=== PATIENT | male | born 1980 | race Two or more races ===

== ENCOUNTER 2022-03-03 11:31 | Emergency (ER) | payer SELFPAY ==
[~2022-03-03] VITALS: Ht 167.6 cm; Wt 90.7 kg
[2022-03-03 11:50] VITALS: BP 121/85
[2022-03-03] MEDS ORDERED: LIDOCAINE 1% HCL (LOCAL ANESTH.) INJ 20ML MDV ID ONE (12:15)
[2022-03-03] MEDS ORDERED: cefTRIAXone SOD 1,000 MG VL IM ONE (12:15)
[2022-03-03] MEDS ORDERED: TETANUS-DIPTH-ACEL PERTUSSIS 0.5ML SYR Tdap IM ONE (12:15)
[2022-03-03] MEDS ORDERED: LIDOCAINE 1%HCL (LOCAL ANESTH) 10 ML MDV ONE (12:22)
[2022-03-03] MEDS ORDERED: CEPH500C PO (12:39)
[2022-03-03] MEDS ORDERED: IBUP800T27 PO (12:39)
== END 2022-03-03 13:11 | disposition home or self-care (01) ==
LOC: ER 11:31
DX: S62.611A Displaced fracture of proximal phalanx of left index finger, initial encounter for closed fracture (principal); S61.211A Laceration without foreign body of left index finger without damage to nail, initial encounter; Z79.1 Long term (current) use of non-steroidal anti-inflammatories (NSAID); Z79.899 Other long term (current) drug therapy; W26.8XXA Contact with other sharp object(s), not elsewhere classified, initial encounter; Y93.89 Activity, other specified; Y92.89 Other specified places as the place of occurrence of the external cause; Y99.8 Other external cause status
CPT/HCPCS: 12002; 73130; 90471; 90715; 96372; 99284; J0696; J2001